=== PATIENT | female | born 1980 | race Caucasian/White ===

== ENCOUNTER 2020-03-19 12:42 | Emergency (ER) | payer OTHER ==
[~2020-03-19] VITALS: Ht 170.2 cm; Wt 102.4 kg
[~2020-03-19 12:42] MED LIST: ATIV1TAB7 PO; DICY20TA PO; LAMI25TA PO; NORC1TAB5 PO; ROBA500T PO; SERT-141 PO
[2020-03-19] MEDS ORDERED: OMEP-218 (12:53)
[2020-03-19] MEDS ORDERED: SUCR1TAB56 (12:53)
[2020-03-19] MEDS ORDERED: BOOSTRIX/ADACEL VACCINE (DIPHTH/PERTUSS/ACELL/TETANUS) 0.5ML SYR IM ONE (13:45)
[2020-03-19] MEDS ORDERED: LIDOCAINE 2% MDV 20ML VIAL SC ONE (14:00)
--- NOTE | 2020-03-19 14:21 | REP ---
Left hand series: Four views. History: Pain and bruising and fifth digit. Findings: Four views of the left hand demonstrate overall normal mineralization. No fracture or subluxation is seen. Bones joints soft tissues are unremarkable. Impression: No fracture noted. Electronically Signed by Lars Valdez MD 03/19/2020 02:12 P
[2020-03-19 15:07] VITALS: BP 129/66
== END 2020-03-19 15:13 | disposition home or self-care (01) ==
LOC: M ED 12:42
DX: S61.216A Laceration without foreign body of right little finger without damage to nail, initial encounter (principal); W27.4XXA Contact with kitchen utensil, initial encounter; Y92.000 Kitchen of unspecified non-institutional (private) residence as the place of occurrence of the external cause; Y93.39 Activity, other involving climbing, rappelling and jumping off; Y99.0 Civilian activity done for income or pay; F17.218 Nicotine dependence, cigarettes, with other nicotine-induced disorders; Z88.8 Allergy status to other drugs, medicaments and biological substances

== ENCOUNTER 2020-03-27 09:09 | Emergency (ER) | payer OTHER ==
[~2020-03-27] VITALS: Ht 170.2 cm; Wt 100.3 kg
[~2020-03-27 09:09] MED LIST changes: +OMEP-218; +SUCR1TAB56
[2020-03-27 09:10] VITALS: BP 143/63
== END 2020-03-27 09:32 | disposition home or self-care (01) ==
LOC: M ED 09:09
DX: Z48.02 Encounter for removal of sutures (principal); Z88.8 Allergy status to other drugs, medicaments and biological substances

== ENCOUNTER → 2020-04-19 | Outpatient (CLI) | payer OTHER | LOC: M LABSMTC 14:08 | PROVIDERS: ATTEND Family Medicine | DX: Z11.59 Encounter for screening for other viral diseases (principal); Z20.828 Contact with and (suspected) exposure to other viral communicable diseases | CPT/HCPCS: C9803; U0003 ==

== ENCOUNTER → 2022-05-17 | Outpatient (CLI) | payer OTHER ==
[~2022-05-17] MED LIST changes: -DICY20TA PO; +DICY20TA3 PO; +HYDR-3715 PO; +OMEP-173; -OMEP-218; +ONDA-83 PO; +ONDA4TAB6; +PANT40TA29; +PROC10TA5 PO; +VARE1TAB7 PO; +ZOLO25TA PO
== END ==
LOC: M ONCR 10:14
PROVIDERS: ATTEND General Practice
DX: C53.9 Malignant neoplasm of cervix uteri, unspecified (principal); N39.3 Stress incontinence (female) (male); I10 Essential (primary) hypertension; F41.9 Anxiety disorder, unspecified; F17.210 Nicotine dependence, cigarettes, uncomplicated; K22.70 Barrett's esophagus without dysplasia; K58.9 Irritable bowel syndrome, unspecified; Z79.899 Other long term (current) drug therapy; Z80.0 Family history of malignant neoplasm of digestive organs; Z80.8 Family history of malignant neoplasm of other organs or systems; Z86.010 Personal history of colon polyps; Z88.5 Allergy status to narcotic agent; Z88.8 Allergy status to other drugs, medicaments and biological substances; Z90.49 Acquired absence of other specified parts of digestive tract; Z90.710 Acquired absence of both cervix and uterus; Z90.722 Acquired absence of ovaries, bilateral; Z90.79 Acquired absence of other genital organ(s); Z91.030 Bee allergy status; Z98.84 Bariatric surgery status

== ENCOUNTER → 2022-05-24 | Outpatient (CLI) | payer OTHER | LOC: M RAD 08:42 | PROVIDERS: ATTEND Internal Medicine Cardiovascular Disease | DX: I70.208 Unspecified atherosclerosis of native arteries of extremities, other extremity (principal) ==

== ENCOUNTER 2022-05-29 07:10 | Outpatient (RCR) | payer OTHER ==
[~2022-05-29 07:10] MED LIST changes: -ISOVUE-370 76% 100ML VIAL As Ordered ONE
== END 2022-05-31 ==
LOC: M ONCR 07:10
PROVIDERS: ATTEND General Practice
DX: C53.0 Malignant neoplasm of endocervix (principal)

== ENCOUNTER → 2022-05-29 | Outpatient (CLI) | payer OTHER ==
[~2022-05-29] MED LIST changes: +ISOVUE-370 76% 100ML VIAL As Ordered ONE
== END ==
LOC: M RAD 15:47
PROVIDERS: ATTEND Specialist
DX: C53.9 Malignant neoplasm of cervix uteri, unspecified (principal); R91.1 Solitary pulmonary nodule
CPT/HCPCS: 71260; Q9967

== ENCOUNTER → 2022-06-08 | Outpatient (CLI) | payer OTHER ==
[~2022-06-08] MED LIST changes: -PANT40TA29; +PANT40TA29 PO
== END ==
LOC: M LABSMTC 10:36
PROVIDERS: ATTEND Anesthesiology
DX: Z01.818 Encounter for other preprocedural examination (principal); Z11.52 Encounter for screening for COVID-19

== ENCOUNTER 2022-06-13 10:58 | Day surgery (SDC) | payer OTHER ==
[~2022-06-13] VITALS: Ht 172.7 cm; Wt 97.5 kg
[~2022-06-13 10:58] MED LIST changes: +ceFAZolin SOD 2 GM in IV 1 EA IV ONE
[2022-06-13] MEDS ORDERED: MIDAZOLAM INJ 2MG/2ML VIAL (J2250 PER 1MG) As Ordered ONE (11:20)
[2022-06-13] MEDS ORDERED: fentaNYL 100 MCG/2 ML INJECTION As Ordered ONE (11:21)
[2022-06-13] MEDS ORDERED: LR 1,000 ML IV SCH ×2 (12:00→14:20)
[2022-06-13] MEDS ORDERED: HEPARIN SOD (PORCINE) 5000UNITS/ML 1ML VIAL/SYRINGE As Ordered ONE (12:26)
[2022-06-13] MEDS ORDERED: LIDOCAINE 1% SDV 30ML VIAL As Ordered ONE (12:26)
[2022-06-13] MEDS ORDERED: propofoL 200 MG/20 ML VIAL As Ordered ONE ×3 (13:08→13:51)
[2022-06-13] MEDS ORDERED: fentaNYL 100 MCG/2 ML INJECTION IV PRN (14:20)
[2022-06-13] MEDS ORDERED: ONDANSETRON 4MG 2ML VIAL IV PRN (14:20)
[2022-06-13] MEDS ORDERED: MORPHINE 2 MG/ML 1ML VIAL IV PRN (14:20)
[2022-06-13] MEDS ORDERED: oxyCODONE 5MG TAB PO PRN (14:20)
[2022-06-13 14:45] VITALS: BP 118/75
[2022-06-15] MEDS ORDERED: PROC10TA5 PO (08:48)
== END 2022-06-13 15:45 | disposition home or self-care (01) ==
LOC: M SDC 10:58
PROVIDERS: ATTEND Surgery
DX: C53.9 Malignant neoplasm of cervix uteri, unspecified (principal); Z45.1 Encounter for adjustment and management of infusion pump; I10 Essential (primary) hypertension; K21.9 Gastro-esophageal reflux disease without esophagitis; K57.92 Diverticulitis of intestine, part unspecified, without perforation or abscess without bleeding; K58.8 Other irritable bowel syndrome; F41.0 Panic disorder [episodic paroxysmal anxiety]; F32.A Depression, unspecified; G43.909 Migraine, unspecified, not intractable, without status migrainosus; J37.0 Chronic laryngitis; F17.210 Nicotine dependence, cigarettes, uncomplicated; F12.10 Cannabis abuse, uncomplicated; Z91.030 Bee allergy status; Z88.5 Allergy status to narcotic agent; Z79.899 Other long term (current) drug therapy
CPT/HCPCS: 36561; 76000; C1788; J0690; J1642; J1644; J2250; J2405; J3010

== ENCOUNTER → 2022-06-30 | Outpatient (RCR) | payer OTHER ==
[~2022-06-30] MED LIST changes: +ALPR0.5T3 PO; +CYCL5TAB PO; +FLUC100T3 PO; +NYST50SS PO; -ceFAZolin SOD 2 GM in IV 1 EA IV ONE
== END ==
LOC: M ONCR 06-01 15:05
PROVIDERS: ATTEND General Practice
DX: C53.0 Malignant neoplasm of endocervix (principal)

== ENCOUNTER → 2022-07-06 | Outpatient (REF) | payer OTHER ==
[~2022-07-06] MED LIST changes: +BACT800T5 PO; +ONDA8TAB8 PO
[2022-07-06 11:37] LABS: RHEUMATOID FACTOR QUANT < 10.0 IU/ML (<15.0); TOTAL PROTEIN 6.7 GM/DL (6.4-8.2)
[2022-07-06 11:46] LABS: HEMOGLOBIN A1c 5.7 %
[2022-07-06 12:11] LABS: TOTAL 25(OH) VITAMIN D 19.7 NG/ML (30.0-100.0)
[2022-07-07 12:16] LABS: ALBUMIN 3.71 GM/DL (3.29-5.55); ALBUMIN % 55.3 % (55.8-66.1); ALPHA-1-GLOBULIN % 5.7 % (2.9-4.9); ALPHA-1-GLOBULINS 0.38 GM/DL (0.17-0.41); ALPHA-2-GLOBULINS 0.96 GM/DL (0.42-0.99); ALPHA-2-GLOBULINS % 14.4 % (7.1-11.8); BETA-1-GLOBULINS 0.47 GM/DL (0.28-0.60); BETA-2-GLOBULINS 0.32 GM/DL (0.19-0.55); BETA-2-GLOBULINS % 4.8 % (3.2-6.5); GAMMA GLOBULIN % 12.8 % (11.1-18.8); GAMMA GLOBULINS 0.86 GM/DL (0.65-1.58)
[2022-07-07 15:50] LABS: VITAMIN B12 LEVEL 249 PG/ML (247-911)
[2022-07-08 06:08] LABS: FOLATE 4.9 ng/mL (>3.0)
== END ==
LOC: M LAB REF 10:42
PROVIDERS: ATTEND Psychiatry & Neurology Neurology
DX: G60.2 Neuropathy in association with hereditary ataxia (principal)

== ENCOUNTER 2022-07-28 09:24 | Outpatient (RCR) | payer OTHER ==
[2022-08-03] MEDS ORDERED: POTA-151 PO (11:59)
== END 2022-07-31 ==
LOC: M ONCR 09:24
PROVIDERS: ATTEND General Practice
DX: C53.0 Malignant neoplasm of endocervix (principal)

== ENCOUNTER → 2022-08-03 | Outpatient (CLI) | payer OTHER ==
[~2022-08-03] MED LIST changes: +POTA-151 PO
== END ==
LOC: M RAD 11:40
PROVIDERS: ATTEND Nurse Practitioner
DX: R05.9 Cough, unspecified (principal); C53.9 Malignant neoplasm of cervix uteri, unspecified

== ENCOUNTER → 2022-08-10 | Outpatient (CLI) | payer OTHER | LOC: M RAD 12:48 | PROVIDERS: ATTEND Nurse Practitioner | DX: C53.9 Malignant neoplasm of cervix uteri, unspecified (principal) ==

== ENCOUNTER → 2022-10-16 | Outpatient (CLI) | payer OTHER ==
[~2022-10-16] MED LIST changes: +AMIT10TA7 PO; +GASTROGRAFIN SOLUTION 30ML As Ordered ONE; +ISOVUE-370 76% 100ML VIAL As Ordered ONE; +NYST-38 PO; -NYST50SS PO; +SUMA50TA2 PO
[2022-10-16 14:37] LABS: ALBUMIN 3.8 G/DL (3.2-5.2); ALKALINE PHOSPHATASE 76 U/L (46-116); ALT/SGPT 28 U/L (7.0-40); AST/SGOT 18 U/L (<34); BILIRUBIN,TOTAL 0.6 MG/DL (0.3-1.2); BLOOD UREA NITROGEN 10 MG/DL (9-23); CALCIUM LEVEL 9.2 MG/DL (8.5-10.1); CARBON DIOXIDE LEVEL 27 MMOL/L (20-31); CHLORIDE LEVEL 107 MMOL/L (98-107); CREATININE FOR GFR 0.59 MG/DL (0.55-1.30); GLOMERULAR FILTRATION RATE > 60.0 (>58); GLUCOSE, FASTING 99 MG/DL (60-100); POTASSIUM SERUM 4.2 MMOL/L (3.5-5.1); SODIUM LEVEL 140 MMOL/L (136-145); TOTAL PROTEIN 6.9 G/DL (5.7-8.2)
== END ==
LOC: M LAB 13:34 → M RAD 13:34
PROVIDERS: ATTEND General Practice
DX: C53.0 Malignant neoplasm of endocervix (principal); Z90.710 Acquired absence of both cervix and uterus

== ENCOUNTER → 2022-10-26 | Outpatient (CLI) | payer OTHER ==
[~2022-10-26] MED LIST changes: -GASTROGRAFIN SOLUTION 30ML As Ordered ONE; -ISOVUE-370 76% 100ML VIAL As Ordered ONE
== END ==
LOC: M ONCR 09:48
PROVIDERS: ATTEND General Practice
DX: C53.0 Malignant neoplasm of endocervix (principal); N94.19 Other specified dyspareunia; Z79.899 Other long term (current) drug therapy; Z88.5 Allergy status to narcotic agent; Z88.8 Allergy status to other drugs, medicaments and biological substances; Z90.710 Acquired absence of both cervix and uterus; Z90.79 Acquired absence of other genital organ(s); Z90.722 Acquired absence of ovaries, bilateral; Z91.030 Bee allergy status; Z91.048 Other nonmedicinal substance allergy status; Z92.21 Personal history of antineoplastic chemotherapy; Z92.3 Personal history of irradiation

== ENCOUNTER → 2022-11-28 | Outpatient (REF) | payer OTHER ==
[2022-11-28 13:54] LABS: APPEARANCE, URINE CLEAR (CLEAR); BACTERIA, URINE AUTO NEGATIVE (NEGATIVE); BILIRUBIN, URINE AUTO NEGATIVE (NEGATIVE); BLOOD, URINE BLOOD NEGATIVE (NEGATIVE); COLOR, URINE YELLOW (YELLOW); GLUCOSE, URINE (UA) AUTO NEGATIVE (NEGATIVE); KETONE, URINE AUTO TRACE mg/dL (NEGATIVE); LEUKOCYTE ESTERASE, URINE AUTO NEGATIVE (NEGATIVE); NITRITE, URINE AUTO NEGATIVE (NEGATIVE); PROTEIN, URINE AUTO NEGATIVE (NEGATIVE); RBC, URINE AUTO 0 /HPF (0-3); SPECIFIC GRAVITY URINE AUTO 1.015 (1.002-1.035); SQUAMOUS EPITHELIAL CELL UR AU 0 /HPF (0-6); WBC, URINE AUTO 1 /HPF (0-3)
== END ==
LOC: M SMT 13:14
PROVIDERS: ATTEND Physician Assistant
DX: N39.41 Urge incontinence (principal)

== ENCOUNTER → 2022-12-07 | Outpatient (CLI) | payer OTHER | LOC: M RAD 12:34 | PROVIDERS: ATTEND Nurse Practitioner | DX: M54.2 Cervicalgia (principal); M79.601 Pain in right arm ==

== ENCOUNTER → 2023-01-29 | Outpatient (REF) | payer OTHER ==
[2023-01-29 19:47] LABS: AMORPHOUS SEDIMENT SMALL (NEGATIVE); APPEARANCE, URINE TURBID (CLEAR); BACTERIA, URINE AUTO NEGATIVE (NEGATIVE); BILIRUBIN, URINE AUTO NEGATIVE (NEGATIVE); BLOOD, URINE BLOOD NEGATIVE (NEGATIVE); CALCIUM OXALATE CRYSTALS LARGE; COLOR, URINE YELLOW (YELLOW); GLUCOSE, URINE (UA) AUTO NEGATIVE (NEGATIVE); KETONE, URINE AUTO TRACE mg/dL (NEGATIVE); LEUKOCYTE ESTERASE, URINE AUTO 2+ (NEGATIVE); MUCUS, URINE SMALL (NEGATIVE); NITRITE, URINE AUTO NEGATIVE (NEGATIVE); PROTEIN, URINE AUTO NEGATIVE (NEGATIVE); RBC, URINE AUTO 2 /HPF (0-3); SPECIFIC GRAVITY URINE AUTO 1.025 (1.002-1.035); SQUAMOUS EPITHELIAL CELL UR AU 0 /HPF (0-6); WBC, URINE AUTO 7 /HPF (0-3)
== END ==
LOC: M SMT 16:40
PROVIDERS: ATTEND Physician Assistant
DX: N39.0 Urinary tract infection, site not specified (principal)

== ENCOUNTER 2023-08-08 09:28 | Outpatient (RCR) | payer OTHER ==
[2023-08-30] MEDS ORDERED: HYDR-3715 PO (12:26)
[2023-08-30] MEDS ORDERED: ALPR0.5T3 PO (12:26)
[2023-08-31] MEDS ORDERED: HYDR-3715 PO (10:55)
== END 2023-08-30 ==
LOC: M PT 09:28
PROVIDERS: ATTEND Nurse Practitioner
DX: N94.19 Other specified dyspareunia (principal)

== ENCOUNTER → 2023-09-04 | Outpatient (CLI) | payer OTHER ==
[2023-09-04 11:00] LABS: BASO # 0.1 10^3/uL (0.0-0.2); BASO % 0.7 % (0.0-1.0); EOS # 0.2 10^3/uL (0.0-0.5); EOS % 1.8 % (0.0-3.0); HEMATOCRIT 48.4 % (36.0-47.0); HEMOGLOBIN 16.2 g/dl (12.0-15.5); LYMPH # 1.6 10^3/uL (1.5-5.0); MEAN CORPUSCULAR HEMOGLOBIN 30.7 pg (27.0-33.0); MEAN CORPUSCULAR HGB CONC 33.5 g/dl (32.0-36.5); MEAN CORPUSCULAR VOLUME 91.8 fl (80.0-96.0); MONO # 0.5 10^3/uL (0.0-0.8); MONO % 4.6 % (2.0-8.0); NEUTROPHILS # 7.7 10^3/uL (1.5-8.5); NEUTROPHILS % 76.6 % (36.0-66.0); PLATELET COUNT, AUTOMATED 239 10^3/uL (150-450); RED BLOOD COUNT 5.27 10^6/uL (4.00-5.40); WHITE BLOOD COUNT 10.1 10^3/uL (4.0-10.0)
[2023-09-04 11:30] LABS: ALBUMIN 3.9 G/DL (3.2-5.2); ALKALINE PHOSPHATASE 74 U/L (46-116); ALT/SGPT 17 U/L (7.0-40); AST/SGOT 13 U/L (<34); BILIRUBIN,TOTAL 0.9 MG/DL (0.3-1.2); BLOOD UREA NITROGEN 11 MG/DL (9-23); CALCIUM LEVEL 9.6 MG/DL (8.5-10.1); CARBON DIOXIDE LEVEL 28 MMOL/L (20-31); CHLORIDE LEVEL 107 MMOL/L (98-107); CREATININE FOR GFR 0.66 MG/DL (0.55-1.30); GLOMERULAR FILTRATION RATE > 60.0 (>58); GLUCOSE, FASTING 95 MG/DL (60-100); POTASSIUM SERUM 4.4 MMOL/L (3.5-5.1); SODIUM LEVEL 142 MMOL/L (136-145); TOTAL PROTEIN 7.2 G/DL (5.7-8.2)
== END ==
LOC: M ONCR 09:27
PROVIDERS: ATTEND General Practice
DX: C53.0 Malignant neoplasm of endocervix (principal); N94.19 Other specified dyspareunia; Z71.2 Person consulting for explanation of examination or test findings; Z79.899 Other long term (current) drug therapy; Z90.710 Acquired absence of both cervix and uterus; Z90.722 Acquired absence of ovaries, bilateral; Z90.79 Acquired absence of other genital organ(s); Z91.030 Bee allergy status; Z91.048 Other nonmedicinal substance allergy status; Z92.21 Personal history of antineoplastic chemotherapy; Z92.3 Personal history of irradiation; Z88.5 Allergy status to narcotic agent; Z88.8 Allergy status to other drugs, medicaments and biological substances
CPT/HCPCS: 80053; 81001; 85025; 87086; G0463

== ENCOUNTER → 2023-09-05 | Outpatient (CLI) | payer OTHER ==
[~2023-09-05] MED LIST changes: +GASTROGRAFIN SOLUTION 30ML As Ordered ONE; +ISOVUE-370 76% 100ML VIAL As Ordered ONE
== END ==
LOC: M RAD 13:23
PROVIDERS: ATTEND General Practice
DX: C53.0 Malignant neoplasm of endocervix (principal); R91.1 Solitary pulmonary nodule
CPT/HCPCS: 71260; 74177; Q9963; Q9967

== ENCOUNTER → 2023-12-07 | Outpatient (CLI) | payer OTHER ==
[~2023-12-07] MED LIST changes: -GASTROGRAFIN SOLUTION 30ML As Ordered ONE; -ISOVUE-370 76% 100ML VIAL As Ordered ONE
== END ==
LOC: M ONCR 09:36
PROVIDERS: ATTEND General Practice
DX: C53.0 Malignant neoplasm of endocervix (principal); N94.10 Unspecified dyspareunia; F06.4 Anxiety disorder due to known physiological condition; R19.4 Change in bowel habit; Z63.0 Problems in relationship with spouse or partner; Z71.2 Person consulting for explanation of examination or test findings; Z79.899 Other long term (current) drug therapy; Z88.5 Allergy status to narcotic agent; Z88.8 Allergy status to other drugs, medicaments and biological substances; Z90.710 Acquired absence of both cervix and uterus; Z90.722 Acquired absence of ovaries, bilateral; Z90.79 Acquired absence of other genital organ(s); Z91.030 Bee allergy status; Z91.048 Other nonmedicinal substance allergy status; Z92.21 Personal history of antineoplastic chemotherapy; Z92.3 Personal history of irradiation

== ENCOUNTER → 2023-12-27 | Outpatient (CLI) | payer OTHER ==
[~2023-12-27] MED LIST changes: +LIDOCAINE W/EPINEPHRINE 1% 20ML VIAL As Ordered ONE; +MIDAZOLAM INJ 2MG/2ML VIAL As Ordered ONE; +NS 1,000 ML IV SCH; +THERTAB52 PO; +ceFAZolin 2 GM/D5W 50 ML IV BAG As Ordered ONE; +ceFAZolin SOD 2 GM in IV 1 EA IV ONE; +fentaNYL 100 MCG/2 ML INJECTION As Ordered ONE
[2023-12-27 14:50] VITALS: TEMP 96.3
[2023-12-27 16:25] VITALS: BP 120/63; O2SAT 98
== END ==
LOC: M IRPRO 14:26
PROVIDERS: ATTEND Internal Medicine Medical Oncology
DX: D50.9 Iron deficiency anemia, unspecified (principal)
CPT/HCPCS: 36590; 99152; 99153; J0690; J2250; J3010

== ENCOUNTER → 2024-03-05 | Outpatient (CLI) | payer OTHER ==
[~2024-03-05] MED LIST changes: +GASTROGRAFIN SOLUTION 30ML As Ordered ONE; +ISOVUE-370 76% 100ML VIAL As Ordered ONE; -LIDOCAINE W/EPINEPHRINE 1% 20ML VIAL As Ordered ONE; -MIDAZOLAM INJ 2MG/2ML VIAL As Ordered ONE; -NS 1,000 ML IV SCH; +ONDA-282; +ONDA-284 PO; -ONDA4TAB6; -ONDA8TAB8 PO; -ceFAZolin 2 GM/D5W 50 ML IV BAG As Ordered ONE; -ceFAZolin SOD 2 GM in IV 1 EA IV ONE; -fentaNYL 100 MCG/2 ML INJECTION As Ordered ONE
== END ==
LOC: M RAD 09:29
PROVIDERS: ATTEND General Practice
DX: C53.0 Malignant neoplasm of endocervix (principal)
CPT/HCPCS: 71260; 74177; Q9963; Q9967

== ENCOUNTER → 2024-03-12 | Outpatient (CLI) | payer OTHER ==
[~2024-03-12] MED LIST changes: -GASTROGRAFIN SOLUTION 30ML As Ordered ONE; -ISOVUE-370 76% 100ML VIAL As Ordered ONE
== END ==
LOC: M ONCR 08:54
PROVIDERS: ATTEND General Practice
DX: Z85.41 Personal history of malignant neoplasm of cervix uteri (principal); Z90.710 Acquired absence of both cervix and uterus; Z90.722 Acquired absence of ovaries, bilateral; Z90.79 Acquired absence of other genital organ(s); Z92.3 Personal history of irradiation; Z91.048 Other nonmedicinal substance allergy status; Z91.030 Bee allergy status; Z88.5 Allergy status to narcotic agent; Z88.8 Allergy status to other drugs, medicaments and biological substances; Z79.899 Other long term (current) drug therapy; Z71.2 Person consulting for explanation of examination or test findings; Z63.4 Disappearance and death of family member; R91.8 Other nonspecific abnormal finding of lung field; M54.50 Low back pain, unspecified; M54.2 Cervicalgia

== ENCOUNTER → 2024-06-18 | Outpatient (CLI) | payer OTHER | LOC: M ONCR 09:03 | PROVIDERS: ATTEND General Practice | DX: C53.0 Malignant neoplasm of endocervix (principal); Z90.710 Acquired absence of both cervix and uterus; Z90.722 Acquired absence of ovaries, bilateral; Z90.79 Acquired absence of other genital organ(s); Z92.21 Personal history of antineoplastic chemotherapy; Z92.3 Personal history of irradiation; Z63.4 Disappearance and death of family member; Z91.048 Other nonmedicinal substance allergy status; Z91.030 Bee allergy status; Z88.5 Allergy status to narcotic agent; Z88.8 Allergy status to other drugs, medicaments and biological substances; Z79.899 Other long term (current) drug therapy ==

== ENCOUNTER → 2024-06-24 | Outpatient (CLI) | payer OTHER ==
[~2024-06-24] MED LIST changes: +GASTROGRAFIN SOLUTION 30ML As Ordered ONE; +ISOVUE-370 76% 100ML VIAL As Ordered ONE
== END ==
LOC: M RAD 08:05
PROVIDERS: ATTEND Specialist
DX: C53.9 Malignant neoplasm of cervix uteri, unspecified (principal)
CPT/HCPCS: 71260; 74177; Q9963; Q9967

== ENCOUNTER → 2024-09-10 | Outpatient (CLI) | payer OTHER ==
[~2024-09-10] MED LIST changes: -CYCL5TAB PO; +CYCL5TAB4 PO; -GASTROGRAFIN SOLUTION 30ML As Ordered ONE
== END ==
LOC: M RAD 07:43
PROVIDERS: ATTEND General Practice
DX: C53.0 Malignant neoplasm of endocervix (principal)
CPT/HCPCS: 71260; 74177; Q9967

== ENCOUNTER → 2024-09-17 | Outpatient (CLI) | payer OTHER ==
[~2024-09-17] MED LIST changes: -ISOVUE-370 76% 100ML VIAL As Ordered ONE
== END ==
LOC: M ONCR 09:39
PROVIDERS: ATTEND General Practice
DX: C53.0 Malignant neoplasm of endocervix (principal); R21 Rash and other nonspecific skin eruption; M89.9 Disorder of bone, unspecified; Z87.39 Personal history of other diseases of the musculoskeletal system and connective tissue; Z82.61 Family history of arthritis; Z82.69 Family history of other diseases of the musculoskeletal system and connective tissue; Z92.21 Personal history of antineoplastic chemotherapy; Z92.3 Personal history of irradiation; Z91.030 Bee allergy status; Z91.048 Other nonmedicinal substance allergy status; Z88.8 Allergy status to other drugs, medicaments and biological substances; Z88.5 Allergy status to narcotic agent; Z79.899 Other long term (current) drug therapy

== ENCOUNTER → 2024-10-06 | Outpatient (CLI) | payer OTHER | LOC: M WHC 13:51 | PROVIDERS: ATTEND General Practice | DX: C53.0 Malignant neoplasm of endocervix (principal) ==

== ENCOUNTER → 2024-10-06 | Outpatient (CLI) | payer OTHER ==
[2024-10-06 18:51] LABS: BASO # 0.1 10^3/uL (0.0-0.2); BASO % 0.5 % (0.0-1.0); EOS # 0.1 10^3/uL (0.0-0.5); EOS % 0.6 % (0.0-3.0); HEMATOCRIT 45.1 % (36.0-47.0); HEMOGLOBIN 14.8 g/dl (12.0-15.5); LYMPH # 1.6 10^3/uL (1.5-5.0); LYMPH % 11.9 % (24.0-44.0); MEAN CORPUSCULAR HEMOGLOBIN 30.6 pg (27.0-33.0); MEAN CORPUSCULAR HGB CONC 32.8 g/dl (32.0-36.5); MEAN CORPUSCULAR VOLUME 93.2 fl (80.0-96.0); MONO # 0.6 10^3/uL (0.0-0.8); MONO % 4.2 % (2.0-8.0); NEUTROPHILS % 82.4 % (36.0-66.0); PLATELET COUNT, AUTOMATED 245 10^3/uL (150-450); RED BLOOD COUNT 4.84 10^6/uL (4.00-5.40); WHITE BLOOD COUNT 13.4 10^3/uL (4.0-10.0)
[2024-10-06 18:55] LABS: C REACTIVE PROTEIN QUANTITATIV 1.27 MG/DL (<1.0)
[2024-10-06 18:56] LABS: ALBUMIN 3.9 G/DL (3.2-5.2); ALKALINE PHOSPHATASE 69 U/L (35-104); ALT/SGPT 20 U/L (7.0-40); AST/SGOT 13 U/L (<34); BILIRUBIN,TOTAL 0.8 MG/DL (0.3-1.2); BLOOD UREA NITROGEN 11 MG/DL (9-23); CALCIUM LEVEL 9.6 MG/DL (8.5-10.1); CARBON DIOXIDE LEVEL 27 MMOL/L (20-31); CHLORIDE LEVEL 105 MMOL/L (98-107); CREATININE FOR GFR 0.68 MG/DL (0.55-1.30); GLOMERULAR FILTRATION RATE > 60.0 (>58); GLUCOSE, FASTING 102 MG/DL (60-100); POTASSIUM SERUM 4.1 MMOL/L (3.5-5.1); SODIUM LEVEL 140 MMOL/L (136-145); THYROID STIMULATING HORMONE 1.252 uIU/ML (0.55-4.78); TOTAL PROTEIN 7.1 G/DL (5.7-8.2)
[2024-10-06 18:58] LABS: RHEUMATOID FACTOR QUANT 3.9 IU/ML (<14)
[2024-10-06 18:59] LABS: FREE T4 1.31 NG/DL (0.89-1.76)
== END ==
LOC: M PLALAB 14:29
PROVIDERS: ATTEND General Practice
DX: C53.1 Malignant neoplasm of exocervix (principal)

== ENCOUNTER → 2024-10-31 | Outpatient (RCR) | payer OTHER | LOC: M PT 10-24 13:11 | PROVIDERS: ATTEND General Practice | DX: M54.50 Low back pain, unspecified (principal); C53.0 Malignant neoplasm of endocervix ==

== ENCOUNTER 2024-11-21 09:15 | Outpatient (RCR) | payer OTHER | END 2024-11-28 | LOC: M PT 09:15 | PROVIDERS: ATTEND General Practice | DX: M54.50 Low back pain, unspecified (principal); C53.0 Malignant neoplasm of endocervix ==

== ENCOUNTER → 2024-12-22 | Outpatient (CLI) | payer OTHER | LOC: M WHC 10:01 | PROVIDERS: ATTEND Internal Medicine Medical Oncology | DX: Z12.31 Encounter for screening mammogram for malignant neoplasm of breast (principal); R92.313 Mammographic fatty tissue density, bilateral breasts ==

== ENCOUNTER → 2025-04-01 | Outpatient (CLI) | payer OTHER ==
[~2025-04-01] MED LIST changes: +AMIT10TA11 PO; -AMIT10TA7 PO
== END ==
LOC: M ONCR 13:34
PROVIDERS: ATTEND General Practice
DX: Z08 Encounter for follow-up examination after completed treatment for malignant neoplasm (principal); Z85.41 Personal history of malignant neoplasm of cervix uteri; M13.0 Polyarthritis, unspecified; I73.00 Raynaud's syndrome without gangrene; M25.551 Pain in right hip; R29.6 Repeated falls; Z79.899 Other long term (current) drug therapy; Z82.69 Family history of other diseases of the musculoskeletal system and connective tissue; Z90.710 Acquired absence of both cervix and uterus; Z90.722 Acquired absence of ovaries, bilateral; Z90.79 Acquired absence of other genital organ(s); Z92.21 Personal history of antineoplastic chemotherapy; Z92.3 Personal history of irradiation; Z91.048 Other nonmedicinal substance allergy status; Z91.030 Bee allergy status; Z88.5 Allergy status to narcotic agent; Z88.8 Allergy status to other drugs, medicaments and biological substances

== ENCOUNTER → 2025-06-18 | Outpatient (CLI) | payer OTHER ==
[~2025-06-18] MED LIST changes: +ISOVUE-370 76% 100 ML VIAL As Ordered ONE
== END ==
LOC: M RAD 12:42
PROVIDERS: ATTEND General Practice
DX: C53.0 Malignant neoplasm of endocervix (principal)
CPT/HCPCS: 71260; 74177; Q9967

== ENCOUNTER → 2025-07-02 | Outpatient (CLI) | payer OTHER ==
[~2025-07-02] MED LIST changes: -ISOVUE-370 76% 100 ML VIAL As Ordered ONE
== END ==
LOC: M ONCR 13:34
PROVIDERS: ATTEND General Practice
DX: C53.0 Malignant neoplasm of endocervix (principal); F17.210 Nicotine dependence, cigarettes, uncomplicated; Z90.710 Acquired absence of both cervix and uterus; Z90.722 Acquired absence of ovaries, bilateral; Z90.79 Acquired absence of other genital organ(s); Z92.21 Personal history of antineoplastic chemotherapy; Z92.3 Personal history of irradiation; Z91.030 Bee allergy status; Z91.048 Other nonmedicinal substance allergy status; Z88.5 Allergy status to narcotic agent; Z88.8 Allergy status to other drugs, medicaments and biological substances; Z79.899 Other long term (current) drug therapy

== ENCOUNTER 2025-08-24 16:23 | Inpatient (IN) | payer OTHER ==
[~2025-08-24 16:23] MED LIST changes: -PROHANCE 279.3MG/ML 15ML VIAL ONE; -PROHANCE 279.3MG/ML 5ML VIAL ONE
[2025-08-24 17:24] LABS: BASO # 0.1 10^3/uL (0.0-0.2); BASO % 0.8 % (0.0-1.0); EOS # 0.4 10^3/uL (0.0-0.5); EOS % 3.0 % (0.0-3.0); LYMPH # 3.0 10^3/uL (1.5-5.0); LYMPH % 22.8 % (24.0-44.0); MONO # 0.6 10^3/uL (0.0-0.8); MONO % 4.9 % (2.0-8.0); NEUTROPHILS # 8.9 10^3/uL (1.5-8.5); NEUTROPHILS % 68.0 % (36.0-66.0)
[2025-08-24] MEDS ORDERED: ISOVUE-370 76% 100 ML VIAL As Ordered ONE (17:36)
[2025-08-24] MEDS ORDERED: HOME MED LIST COMPLETE! XX SCH (17:40)
[2025-08-24 17:54] LABS: PLATELET COUNT, AUTOMATED 228 10^3/uL (150-450)
[2025-08-24 18:00] LABS: CALCIUM LEVEL 8.8 MG/DL (8.5-10.1); CARBON DIOXIDE LEVEL 25 MMOL/L (20-31); CHLORIDE LEVEL 109 MMOL/L (98-107); CREATININE FOR GFR 0.57 MG/DL (0.55-1.30); GLOMERULAR FILTRATION RATE > 90.0 (>58); MAGNESIUM LEVEL 1.8 MG/DL (1.8-2.4); POTASSIUM SERUM 4.2 MMOL/L (3.5-5.1); SODIUM LEVEL 140 MMOL/L (136-145)
[2025-08-24 18:31] LABS: INR 0.88
[2025-08-24 18:47] VITALS: BP 149/91; TEMP 97.7
[2025-08-24] MEDS ORDERED: HEPARIN SOD 5000 UNITS/ML 1 ML VIAL/SYRINGE SQ SCH (19:20)
[2025-08-24] MEDS: ASPIRIN 81 MG CHEWABLE TABLET PO ONE (19:51)
[2025-08-24] MEDS: ATORVASTATIN 20 MG TAB PO SCH (21:28)
[2025-08-24] MEDS: LORazepam 1 MG TAB PO STA (21:28)
[2025-08-24] MEDS: HEPARIN SOD 5000 UNITS/ML 1 ML VIAL/SYRINGE SQ SCH (21:29)
[2025-08-24 22:23] LABS: CK-MB VALUE MASS 1.4 NG/ML (<3.6)
[2025-08-24 22:25] LABS: ALT/SGPT 24 U/L (7.0-40); AST/SGOT 15 U/L (<34); C REACTIVE PROTEIN QUANTITATIV 1.38 MG/DL (<1.0); CHOLESTEROL LEVEL 185 MG/DL (<200); CHOLESTEROL RISK RATIO 6.82 (<5); CPK CREATINE PHOSPHOKINASE 59 U/L (34-145); CREATININE FOR GFR 0.61 MG/DL (0.55-1.30); GLOMERULAR FILTRATION RATE > 90.0 (>58); LDL CHOLESTEROL 123.1 MG/DL (<100); MB/CK RELATIVE INDEX 2.37 (< OR =4); NON-HDL-C 157.9 MG/DL; TRIGLYCERIDES LEVEL 174 MG/DL (<150)
[2025-08-24 23:14] LABS: ESTIMATED AVERAGE GLUCOSE 120.0 MG/DL (60-110)
[2025-08-24 23:25] LABS: RHEUMATOID FACTOR QUANT < 3.5 IU/ML (<14)
[2025-08-24 23:40] LABS: INR 0.92
[2025-08-25] VITALS (10 sets, daily range): BP systolic 109–153; BP diastolic 58–98; TEMP 97.3–99.2; O2SAT 97–100
[2025-08-25 06:26] LABS: PLATELET COUNT, AUTOMATED 212 10^3/uL (150-450)
[2025-08-25 06:51] LABS: CALCIUM LEVEL 8.5 MG/DL (8.5-10.1); CARBON DIOXIDE LEVEL 27 MMOL/L (20-31); CHLORIDE LEVEL 110 MMOL/L (98-107); CREATININE FOR GFR 0.61 MG/DL (0.55-1.30); GLOMERULAR FILTRATION RATE > 90.0 (>58); MAGNESIUM LEVEL 1.9 MG/DL (1.8-2.4); POTASSIUM SERUM 4.0 MMOL/L (3.5-5.1); SODIUM LEVEL 143 MMOL/L (136-145)
[2025-08-25] MEDS: ACETAMINOPHEN 325 MG TAB PO PRN (06:52)
[2025-08-25] MEDS ORDERED: ASPIRIN 81 MG CHEWABLE TABLET PO ONE (09:00)
[2025-08-25] MEDS: CLOPIDOGREL 75 MG TAB PO SCH (09:45)
[2025-08-25] MEDS: NICOTINE 21 MG/24 HR 1 EA TRANSDERMAL TD SCH (09:45)
[2025-08-25] MEDS: ASPIRIN 81 MG CHEWABLE TABLET PO SCH (09:45)
[2025-08-26 00:02] VITALS: BP 107/58; TEMP 98.1; O2SAT 97
[2025-08-26 01:11] VITALS: BP 109/77; TEMP 97.9; O2SAT 8; O2SAT 98
[2025-08-26 04:27] VITALS: BP 107/57; TEMP 98; O2SAT 98
[2025-08-26 04:34] VITALS: BP 107/57; TEMP 98; O2SAT 99
[2025-08-26 08:24] VITALS: BP 145/63; TEMP 97.9; O2SAT 97
[2025-08-26] MEDS: FLUZONE VACCINE TRI PF(25-26) 0.5ML SYRINGE IM.IMMUN ONE (12:03)
[2025-08-26 12:31] VITALS: BP 127/66; TEMP 98.1; O2SAT 94
[2025-08-26] MEDS ORDERED: ATOR1TAB21 PO (13:18)
[2025-08-26] MEDS ORDERED: CLOP75TA2 PO (13:18)
[2025-08-26] MEDS ORDERED: ASPI81CH8 PO (13:18)
[2025-08-26] MEDS ORDERED: NICO21PAT TD (13:18)
[2025-08-26 22:43] LABS: CARDIOLIPIN IGA ANTIBODY < 2.0 APL-U/mL (<20.0); CARDIOLIPIN IGG ANTIBODY < 2.0 GPL-U/mL (<20.0); CARDIOLIPIN IGM ANTIBODY < 2.0 MPL-U/mL (<20.0)
[2025-08-26 22:58] LABS: SSA SJOGRENS A <1.0 NEG AI (<1.0 NEG); SSB SJOGRENS B <1.0 NEG AI (<1.0 NEG)
[2025-08-28 14:38] LABS: PROTEIN S ANTIGEN FREE 97 % normal (50-147); PROTEIN S ANTIGEN TOTAL 108 % normal (70-140)
[2025-08-28 15:42] LABS: HOMOCYST(E)INE SERUM 9.4 umol/L (< or = 11.0)
[2025-08-29 23:32] LABS: ANTI THROMBIN 3 ANTIGEN IMMUNO 85 % normal (80-120); ANTI THROMBIN 3 FUNCT ACTIVITY 96 % normal (80-135)
[2025-08-30 01:17] LABS: FACTOR II PROTHROMBIN GENE AN NEGATIVE
[2025-08-30 17:42] LABS: PROTEIN C ANTIGEN 94 % normal (70-140)
[2025-08-31 16:32] LABS: FACTOR V111 ACTIVITY, CLOTTING 149 % normal (50-180); FACTOR VIII APTT 26 sec (23-32); RISTOCETIN COFACTOR 181 % normal (42-200); VW FACTOR ANTIGEN 215 % (50-217)
== END 2025-08-26 14:07 | disposition home or self-care (01) | DRG 45 ==
LOC: M ED 16:23 → M ED INP 19:19 → M MSPAV 08-25 02:24
PROVIDERS: ADMIT Internal Medicine; ATTEND Student in an Organized Health Care Education/Training Program
DX: I63.9 Cerebral infarction, unspecified (principal); I10 Essential (primary) hypertension; F17.210 Nicotine dependence, cigarettes, uncomplicated; Z85.41 Personal history of malignant neoplasm of cervix uteri; Z91.030 Bee allergy status; Z88.8 Allergy status to other drugs, medicaments and biological substances; Z79.899 Other long term (current) drug therapy

== ENCOUNTER → 2025-08-24 | Outpatient (CLI) | payer OTHER ==
[~2025-08-24] MED LIST changes: +PROHANCE 279.3MG/ML 15ML VIAL ONE; +PROHANCE 279.3MG/ML 5ML VIAL ONE
== END ==
LOC: M PLAIMG 12:25
DX: R42 Dizziness and giddiness (principal)